=== PATIENT | female | born 1980 | race African-American/Black ===

== ENCOUNTER 2024-12-23 12:35 | Emergency (ER) | payer BC ==
--- OUTSIDE RECORDS SUMMARY | 2024-12-23 12:41 | XMS REPORT | Continuity of Care Document ---
Author Name Unknown Address [address] [facility] [address] [place] [address] [facility] Address [address] [facility] 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 Role Phone No , Pcp Primary Care Physician Unavailab GOYO Lamas Attending Clinician Unavailable Soledad Keyes APRN Attending Clinician [phone] CHARU VIDAL Attending Clinician UnavailMARICRUZ Morin Attending Clinician Unavailable ZAINAB BAHENA Attending Clinician Unavailable CHRETIEN_F Attending Clinician Unavailable GHAZALA IGNACIO Attending Clinician Unavailab Lina Raymond Attending Clinician [phone] Devang Wahl MD Attending Clinician [phone] Letha Mendoza MA Attending Clinician Unavailab le SCHAUBROECK_L Attending Clinician Unavailable Trinity Escudero Attending Clinician [phone] DEVANG WAHL M.D. 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 (multi 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) Disease Active 8-15 00:00: 00 Lucy Seybold - Externa l Moderate major depression , single episode Moderate Major Depression , Single Episode Problem Active 4-29 00:00: 00 [facility] Iron deficiency anemia due to blood loss Iron Deficiency Anemia Due to Blood Loss Problem Active 4- 00:00: 00 [facility] Menorrhagi a Menorrhagi a Problem Active 02-05 00:00: 00 [facility] Pain in pelvis Pain in Pelvis Problem Active - 00:00: 00 [facility] Menopausal flushing Menopausal Flushing Problem Active - 00:00: 00 [facility] Pain of right breast Pain of Right Breast Problem Active 9- 00:00: 00 [facility] Superficia l pain on intercours e Superficia l Pain on Intercours e Problem Active 9- 00:00: 00 [facility] Depressive disorder Depressive Disorder Problem Active 9- 00:00: 00 [facility] Frontal lobe epilepsy Frontal Lobe Epilepsy Problem Active - 00:00: 00 [facility] Constipati on Constipati on Problem Active - 00:00: 00 [facility] Dyspareuni a Dyspareuni a Problem Active 9- 00:00: 00 [facility] Chronic constipati on Chronic Constipati on Problem Active 11-30 00:00: 00 [facility] Seizure Seizure Problem Active 11-30 00:00: 00 [facility] Abdominal pain Abdominal Pain Problem Active 11-30 00:00: 00 [facility] ALT (SGPT) level raised ALT (SGPT) Level Raised Problem Active 06-04 00:00: 00 [facility] Raised low density lipoprotei n cholestero l Raised Low Density Lipoprotei n Cholestero l Problem Active 06-04 00:00: 00 [facility] Tenderness of right lower quadrant of abdomen Tenderness of Right Lower Quadrant of Abdomen Problem Active 05-29 00:00: 00 [facility] Seizure disorder Seizure Disorder Problem Active 2017-05 00:00: 00 [facility] Gynecologi you examinatio n abnormal Gynecologi you Examinatio n Abnormal Problem Active 06-20 00:00: 00 [facility] Mild recurrent major depression Mild Recurrent Major Depression Problem Active 06-20 00:00: 00 [facility] Convulsion s Convulsion s Problem [facility] Partial symptomati c epilepsy with simple partial seizures, intractabl e, without status epilepticu s Partial symptomati c epilepsy with simple partial seizures, intractabl e, without status epilepticu s Problem Active [facility] 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 Problem Active [facility] Epilepsy (multi HCC) Epilepsy (multi HCC) Disease Resolve d 2024-12-21 00:00:00 2024-12-21 09:07:23 Lucy Acuña - Externa l Allergies, Adverse Reactions, Alerts Allergy Name Allergy Type Status Severity Reaction(s) Onset Date Inactive Date Treating Clinician Comments Source Carbamaz epine Propensi ty to adverse reaction s Active 2021-05 00:00: 00 [facility] [place] de Propensi ty to adverse reaction s Active 2021-05 00:00: 00 [facility] TEGretol TABS Allergy to drug (finding ) Active [facility] Vimpat TABS Allergy to drug (finding ) Active [facility] Social History Social Habit Start Date Stop Date Quantity Comments Source ASSERTION Possible [facility] History of tobacco use Snuff User [facility] Gender identity Ivana Acuña - External Sexual orientation Michael Acuña - External History of Social function 2024-12-21 00:00:00 2024-12-21 00:00:00 Lucy Acuña - External Sex 2024-07-30 08:52:16 2024-07-30 08:52:16 Female (finding) Lucy Acuña - External Tobacco use and exposure 2024-07-30 00:00:00 2024-07-30 00:00:00 Smokeless tobacco non-user Lucy Acuña - External Alcoholic beverage intake 2023-11-03 00:00:00 2023-11-03 00:00:00 Current drinker of alcohol (finding) [facility] Alcohol intake 2023-03-22 00:00:00 2023-03-22 00:00:00 Current drinker of alcohol (finding) [facility] Exposure to SARS-CoV-2 (event) 2022-07-11 00:00:00 2022-07-21 09:24:00 Not sure [facility] Tobacco Comment 2022-02-24 00:00:00 2022-02-24 00:00:00 Current [facility] Alcohol Comment 2022-02-24 00:00:00 2022-02-24 00:00:00 Not everyday getting better [facility] Sex assigned at 1980 00:00:00 1980 00:00:00 Lucy Acuña - External Smoking Status Start Date Stop Date Source Tobacco smoking consumption unknown [facility] Never smoked tobacco Lucy Acuña - External Medications Ordered Medication Name Filled Medication Name Start Date Stop Date Current Medication? Ordering Clinician Indication Dosage Frequency Signature (SIG) Comments Components Source cloBAZam 10 MG oral Tablet cloBAZam 10 MG oral Tablet 12-21 08:54: 17 Yes [id number] 9100 10mg Q.5D Take 10 mg by mouth 2 times daily. Lucy Acuña - Externa l Naproxen 500 MG oral Tablet Naproxen 500 MG oral Tablet 12-21 00:00: 00 Yes [id number] 500mg Take 1 tablet (500 mg total) by mouth in the morning and 1 tablet (500 mg total) in the evening. Take with meals. Lucy Acuña - Externa l Midazolam (Nayzilam) 5 MG/0.1ML nasal Solution Midazolam (Nayzilam) 5 MG/0.1ML nasal Solution 4-09 00:00: 00 Yes [id number] 9100 [place] once in one nostril for seizure > 5 minutes or seizure cluster (2 or more seizures same day). Can repeat once in opposite nostril after 10 minutes if needed. Lucy de souza topiramate (Topamax) 200 MG tablet 4-09 00:00: 00 Yes [id number] 9100 200mg Q.5D Take 1 tablet (200 mg total) by mouth 2 (two) times a day, in the morning and at bedtime. [facility] Ondansetron (ZOFRAN) 8 MG oral tablet Ondansetron (ZOFRAN) 8 MG oral tablet 3-24 00:00: 00 12-21 00:00 :00 No [id number] 8mg [id number] 3D Take 1 tablet (8 mg total) by mouth every 8 hours as needed for nausea. Lucy de souza cloBAZam 10 MG oral Tablet cloBAZam 10 MG oral Tablet 3-03 00:00: 00 12-21 00:00 :00 No TAKE 1 TABLET (10 MG TOTAL) BY MOUTH EVERY MORNING AND 1.5 TABLETS (15 MG TOTAL) EVERY NIGHT. [facility] Topiramate 200 MG oral Tablet Topiramate 200 MG oral Tablet 3-01 00:00: 00 Yes Lucy de souza topiramate (Topamax) 200 MG tablet 2-06 00:00: 00 08-15 00:00 :00 No [id number] 9100 200mg Q.5D TAKE 1 TABLET (200 MG TOTAL) BY MOUTH IN THE MORNING AND BEFORE BEDTIME [facility] cloBAZam (Onfi) 10 MG tablet 2-04 00:00: 00 Yes [id number] 9100 Take 1 tablet (10 mg total) by mouth every morning AND 1.5 tablets (15 mg total) every night. Therapy increase. [facility] Escitalopra m Oxalate 10 MG oral Tablet Escitalopra m Oxalate 10 MG oral Tablet 1-13 00:00: 00 Yes 10mg QD Take 1 tablet (10 mg total) by mouth daily. Lucy de souza cloBAZam (Onfi) 10 MG tablet 11-02 00:00: 00 Yes [id number] Take 1 tablet (10 mg total) by mouth every morning AND 1.5 tablets (15 mg total) every night. [facility] escitalopra m (Lexapro) 10 MG tablet 11-02 00:00: 00 Yes [id number] 4104 10mg QD Take 1 tablet (10 mg total) by mouth 1 (one) time each day. [facility] topiramate (Topamax) 200 MG tablet 11-02 00:00: 00 10-19 04:59 :00 No [id number] 200mg Q.5D Take 1 tablet (200 mg total) by mouth in the morning and 1 tablet (200 mg total) before bedtime. [facility] cloBAZam (Onfi) 10 MG tablet 08-21 00:00: 00 11-02 00:00 :00 No [id number] 10mg Q.5D Take 1 tablet (10 mg total) by mouth in the morning and 1 tablet (10 mg total) in the evening. [facility] cloBAZam (Onfi) 10 MG tablet 2022-05 00:00: 00 Yes [id number] 10mg Q.5D Take 1 tablet (10 mg total) by mouth in the morning and 1 tablet (10 mg total) in the evening. [facility] cloBAZam (Onfi) 10 MG tablet 2022-05 00:00: 00 Yes [id number] 10mg Q.5D Take 1 tablet (10 mg total) by mouth in the morning and 1 tablet (10 mg total) in the evening. [facility] topiramate (Topamax) 200 MG tablet 2022-05 00:00: 00 11-02 00:00 :00 No [id number] 200mg Q.5D Take 1 tablet (200 mg total) by mouth in the morning and 1 tablet (200 mg total) before bedtime. [facility] escitalopra m (Lexapro) 10 MG tablet 2022-05 00:00: 00 11-02 00:00 :00 No [id number] 4104 10mg QD Take 1 tablet (10 mg total) by mouth 1 (one) time each day. [facility] cloBAZam (Onfi) 10 MG tablet 2022-05 0-16 00:00: 00 03-22 00:00 :00 No [id number] 10mg Q.5D Take 1 tablet (10 mg total) by mouth in the morning and 1 tablet (10 mg total) in the evening. [facility] escitalopra m (Lexapro) 10 MG tablet 9-20 00:00: 00 03-22 00:00 :00 No [id number] 4104 10mg QD TAKE 1 TABLET BY MOUTH 1 TIME EACH DAY. [facility] cloBAZam (Onfi) 10 MG tablet 8 00:00: 00 Yes [id number] 10mg Q.5D Take 1 tablet (10 mg total) by mouth in the morning and 1 tablet (10 mg total) in the evening. [facility] escitalopra m (Lexapro) 10 MG tablet 12-31 00:00: 00 04-01 05:59 :00 No [id number] 4104 10mg QD Take 1 tablet (10 mg total) by mouth 1 (one) time each day. [facility] topiramate (Topamax) 200 MG tablet 8 00:00: 00 03-22 00:00 :00 No [id number] 200mg Q.5D Take 1 tablet (200 mg total) by mouth in the morning and 1 tablet (200 mg total) before bedtime. [facility] cloBAZam (Onfi) 10 MG tablet 4-17 00:00: 00 12-31 00:00 :00 No [id number] TAKE 1 TABLET (10 MG TOTAL) BY MOUTH IN THE MORNING AND IN THE EVENING [facility] cloBAZam (Onfi) 10 MG tablet 3-15 00:00: 00 Yes [id number] 10mg Q.5D Take 1 tablet (10 mg total) by mouth in the morning and 1 tablet (10 mg total) in the evening. [facility] topiramate (Topamax) 200 MG tablet 3-15 00:00: 00 12-31 00:00 :00 No [id number] 200mg Q.5D Take 1 tablet (200 mg total) by mouth in the morning and 1 tablet (200 mg total) before bedtime. [facility] cloBAZam (Onfi) 10 MG tablet 2021-05 0- 00:00: 00 Yes [id number] 10mg Q.5D Take 1 tablet (10 mg total) by mouth in the morning and 1 tablet (10 mg total) in the evening. [facility] topiramate (Topamax) 200 MG tablet 2021-05 0 00:00: 00 03-27 05:59 :00 No [id number] 200mg Q.5D Take 1 tablet (200 mg total) by mouth in the morning and 1 tablet (200 mg total) before bedtime. [facility] cloBAZam (Onfi) 10 MG tablet 8-10 00:00: 00 02-24 00:00 :00 No [id number] Take 1/2 tab in the morning and 1 tab at night [facility] topiramate (Topamax) 200 MG tablet 8-08 00:00: 00 Yes [id number] TAKE 1 TABLET BY MOUTH TWICE A DAY [facility] cloBAZam (Onfi) 10 MG tablet 7-26 00:00: 00 Yes [id number] TAKE 1/2 TABLET BY MOUTH TWICE A DAY [facility] cloBAZam (Onfi) 10 MG tablet 6-24 00:00: 00 Yes [id number] TAKE 1/2 TABLET BY MOUTH TWICE DAILY [facility] Pycnogenol Plus 300-25-30 MG CAPS Pycnogenol Plus 300-25-30 MG CAPS 2019-05 0 00:00: 00 Yes 1 QD TAKE 1 CAPSULE DAILY [facility] CBD [place] 4-3-9-1.2 % External Patch CBD [place] 4-3-9-1.2 % External Patch 2019-05 0 00:00: 00 Yes cbd turmeric am, Take 1 capsule daily [facility] MCT Oil Oral Oil MCT Oil Oral Oil 2019-05 0 00:00: 00 Yes USE DIRECTED. [facility] MethylFolat e 400 MCG Oral Capsule MethylFolat e 400 MCG Oral Capsule 2020 00:00: 00 Yes 1 Q0.5D TAKE 1 CAPSULE TWICE DAILY [facility] Coconut Oil 1000 MG Oral Capsule Coconut Oil 1000 MG Oral Capsule 2019-05 00:00: 00 Yes 1 QD TAKE 1 CAPSULE DAILY [facility] Topiramate 200 MG Oral Tablet Topiramate 200 MG Oral Tablet 2018-05 00:00: 00 Yes DEVANG WAHL M.D. Q0.5D TAKE 1 TABLET TWICE DAILY. [facility] cloBAZam 10 MG Oral Tablet cloBAZam 10 MG Oral Tablet 2018-05 00:00: 00 Yes DEVANG WAHL M.D. .5 Q0.5D TAKE 0.5 TABLET TWICE DAILY [facility] escitalopra m 10 mg tablet Take 1 tablet every day by oral route. escitalopra m 10 mg tablet Take 1 tablet every day by oral route. No 1 Q1D escitalopr am 10 mg tablet Take 1 tablet every day by oral route. [facility] Integra F 125 mg-1 mg-40 mg-3 mg capsule Take 1 capsule every day by oral route for 90 days. Integra F 125 mg-1 mg-40 mg-3 mg capsule Take 1 capsule every day by oral route for 90 days. No 1capsul e(s) Q1D Integra F 125 mg-1 mg-40 mg-3 mg capsule Take 1 capsule every day by oral route for 90 days. [facility] Lexapro 20 mg tablet Take 1 tablet every day by oral route for 30 days. Lexapro 20 mg tablet Take 1 tablet every day by oral route for 30 days. No 1 Q1D Lexapro 20 mg tablet Take 1 tablet every day by oral route for 30 days. [facility] Provera 10 mg tablet Take 1 tablet twice a day by oral route for 30 days. Provera 10 mg tablet Take 1 tablet twice a day by oral route for 30 days. No 1 BID Provera 10 mg tablet Take 1 tablet twice a day by oral route for 30 days. [facility] Medrol (Alphonse) 4 mg tablets in a dose pack Take 1 dose pk every day by oral route before meals for 6 days. Medrol (Alphonse) 4 mg tablets in a dose pack Take 1 dose pk every day by oral route before meals for 6 days. No 1dose pk(s) Q1D Medrol (Alphonse) 4 mg tablets in a dose pack Take 1 dose pk every day by oral route before meals for 6 days. [facility] triamcinolo ne acetonide 0.5 % topical cream APPLY A THIN LAYER TO THE AFFECTED AREA(S) BY TOPICAL ROUTE 2 TIMES PER DAY triamcinolo ne acetonide 0.5 % topical cream APPLY A THIN LAYER TO THE AFFECTED AREA(S) BY TOPICAL ROUTE 2 TIMES PER DAY No triamcinol one acetonide 0.5 % topical cream APPLY A THIN LAYER TO THE AFFECTED AREA(S) BY TOPICAL ROUTE 2 TIMES PER DAY [facility] [place] Fe 1.5/30 (28) 1.5 mg-30 mcg (21)/75 mg (7) tablet TAKE 1 TABLET BY MOUTH EVERY DAY [place] Fe 1.5/30 (28) 1.5 mg-30 mcg (21)/75 mg (7) tablet TAKE 1 TABLET BY MOUTH EVERY DAY No [place] Fe 1.5/30 (28) 1.5 mg-30 mcg (21)/75 mg (7) tablet TAKE 1 TABLET BY MOUTH EVERY DAY [facility] Kenalog 40 mg/mL suspension for injection Take 60 mg by injection route as directed for 1 day. Kenalog 40 mg/mL suspension for injection Take 60 mg by injection route as directed for 1 day. No 60mg Kenalog 40 mg/mL suspension for injection Take 60 mg by injection route as directed for 1 day. [facility] methylpredn isolone 4 mg tablets in a dose pack TAKE 6 TABLETS ON DAY 1 DIRECTED ON PACKAGE AND DECREASE BY 1 TAB EACH DAY FOR A TOTAL OF 6 DAYS methylpredn isolone 4 mg tablets in a dose pack TAKE 6 TABLETS ON DAY 1 DIRECTED ON PACKAGE AND DECREASE BY 1 TAB EACH DAY FOR A TOTAL OF 6 DAYS No methylpred nisolone 4 mg tablets in a dose pack TAKE 6 TABLETS ON DAY 1 DIRECTED ON PACKAGE AND DECREASE BY 1 TAB EACH DAY FOR A TOTAL OF 6 DAYS [facility] amoxicillin 500 mg capsule TAKE 1 CAPSULE (500 MG) BY ORAL ROUTE 4 TIMES PER DAY UNTIL ALL TAKEN. amoxicillin 500 mg capsule TAKE 1 CAPSULE (500 MG) BY ORAL ROUTE 4 TIMES PER DAY UNTIL ALL TAKEN. No amoxicilli n 500 mg capsule TAKE 1 CAPSULE (500 MG) BY ORAL ROUTE 4 TIMES PER DAY UNTIL ALL TAKEN. [facility] Bactrim DS 800 mg-160 mg tablet Take 1 tablet every 12 hours by oral route as directed. Bactrim DS 800 mg-160 mg tablet Take 1 tablet every 12 hours by oral route as directed. No 1 Q12H Bactrim DS 800 mg-160 mg tablet Take 1 tablet every 12 hours by oral route as directed. [facility] Miconazole- 7 100 mg vaginal suppository Insert 1 suppository every day by vaginal route for 7 days. Miconazole- 7 100 mg vaginal suppository Insert 1 suppository every day by vaginal route for 7 days. No 1suppos itor(y/ ies) Q1D Miconazole -7 100 mg vaginal suppositor y Insert 1 suppositor y every day by vaginal route for 7 days. [facility] nystatin 100,000 unit/gram topical cream APPLY TO THE AFFECTED AREA(S) BY TOPICAL ROUTE 2 TIMES PER DAY nystatin 100,000 unit/gram topical cream APPLY TO THE AFFECTED AREA(S) BY TOPICAL ROUTE 2 TIMES PER DAY No nystatin 100,000 unit/gram topical cream APPLY TO THE AFFECTED AREA(S) BY TOPICAL ROUTE 2 TIMES PER DAY [facility] Vitamin B12 Vitamin B12 No Vi tamin B12 [facility] Vitamin B12 Vitamin B12 No Vi tamin B12 [facility] Immunizations Ordered Immunization Name Filled Immunization Name Date Status Comments Source Rubella Rubella 2012-08-23 00:00:00 Completed Lucy Acuña - External Td(adult) unspecified formulation Td(adult) unspecified formulation 2008-05-09 00:00:00 Completed Lucy Acuña - External Vital Signs Vital Name Observation Time Observation Value Comments S ource Systolic blood pressure 2024-12-21 08:48:00 98 mm[Hg] Lucy Acuña - External Diastolic blood pressure 2024-12-21 08:48:00 64 mm[Hg] Lucy Acuña - External Heart rate 2024-12-21 08:48:00 88 /min Lucy Acuña - External Body temperature 2024-12-21 08:48:00 37 Danika Lucy Acuña - External Respiratory rate 2024-12-21 08:48:00 18 /min Lucy Acuña - External Body height 2024-12-21 08:48:00 160 cm Lucy Acuña - External Body weight 2024-12-21 08:48:00 70.761 kg Lucy Acuña - External BMI 2024-12-21 08:48:00 27.63 kg/m2 Lucy Sebridgetlesli - External Oxygen saturation in Arterial blood by Pulse oximetry 2024-12-21 08:48:00 99 /min Lucy Acuña - External Body Weight 2024-09-28 00:00:00 155 [lb_av] [facility] BP Systolic 2024-09-28 00:00:00 116 mm[Hg] [facility] BMI (Body Mass Index) 2024-09-28 00:00:00 26.6 kg/m2 [facility] BP Diastolic 2024-09-28 00:00:00 81 mm[Hg] [facility] Height 2024-09-28 00:00:00 64 [in_i] [facility] BP Diastolic 2024-09-04 00:00:00 74 mm[Hg] [facility] Height 2024-09-04 00:00:00 64 [in_i] [facility] BP Systolic 2024-09-04 00:00:00 111 mm[Hg] [facility] Body Weight 2024-09-04 00:00:00 155.6 [lb_av] [facility] BMI (Body Mass Index) 2024-09-04 00:00:00 26.7 kg/m2 [facility] Systolic blood pressure 2024-07-30 15:46:00 110 mm[Hg] Lucy Grullonybold - External Diastolic blood pressure 2024-07-30 15:46:00 68 mm[Hg] Lucy Seybold - External Heart rate 2024-07-30 15:46:00 69 /min Lucy Domenico - External Body temperature 2024-07-30 15:46:00 36.72 Danika Lucy Seybold - External Respiratory rate 2024-07-30 15:46:00 20 /min Lucygui Acuña - External Body height 2024-07-30 15:46:00 160 cm Lucy Acuña - External Body weight 2024-07-30 15:46:00 68.04 kg Lucy Acuña - External BMI 2024-07-30 15:46:00 26.57 kg/m2 Lucy Acuña - External Oxygen saturation in Arterial blood by Pulse oximetry 2024-07-30 15:46:00 100 /min Lucy Acuña - External BMI (Body Mass Index) 2024-02-06 00:00:00 27.7 kg/m2 [facility] Height 2024-02-06 00:00:00 64 [in_i] [facility] Body Weight 2024-02-06 00:00:00 161.4 [lb_av] [facility] BP Systolic 2024-01-20 00:00:00 97 mm[Hg] [facility] Body Weight 2024-01-20 00:00:00 161.4 [lb_av] [facility] BMI (Body Mass Index) 2024-01-20 00:00:00 27.7 kg/m2 [facility] Height 2024-01-20 00:00:00 64 [in_i] [facility] BP Diastolic 2024-01-20 00:00:00 74 mm[Hg] [facility] Systolic blood pressure 2023-11-03 19:59:00 126 mm[Hg] [facility] Diastolic blood pressure 2023-11-03 19:59:00 87 mm[Hg] [facility] Heart rate 2023-11-03 19:59:00 77 /min [facility] Body temperature 2023-11-03 19:59:00 36.61 Danika [facility] Respiratory rate 2023-11-03 19:59:00 18 /min [facility] Body weight 2023-11-03 19:59:00 73.029 kg [facility] BMI 2023-11-03 19:59:00 28.52 kg/m2 [facility] Oxygen saturation in Arterial blood by Pulse oximetry 2023-11-03 19:59:00 99 /min [facility] Systolic blood pressure 2023-03-22 18:56:00 126 mm[Hg] [facility] Diastolic blood pressure 2023-03-22 18:56:00 85 mm[Hg] [facility] Heart rate 2023-03-22 18:56:00 62 /min [facility] Body temperature 2023-03-22 18:56:00 36.5 Danika [facility] Respiratory rate 2023-03-22 18:56:00 18 /min [facility] Body weight 2023-03-22 18:56:00 71.079 kg [facility] BMI 2023-03-22 18:56:00 27.76 kg/m2 [facility] Oxygen saturation in Arterial blood by Pulse oximetry 2023-03-22 18:56:00 100 /min [facility] Systolic blood pressure 2022-12-31 19:28:00 119 mm[Hg] [facility] Diastolic blood pressure 2022-12-31 19:28:00 82 mm[Hg] [facility] Heart rate 2022-12-31 19:28:00 83 /min [facility] Body temperature 2022-12-31 19:28:00 36.17 Danika [facility] Respiratory rate 2022-12-31 19:28:00 18 /min [facility] Body weight 2022-12-31 19:28:00 73.936 kg [facility] BMI 2022-12-31 19:28:00 28.87 kg/m2 [facility] Oxygen saturation in Arterial blood by Pulse oximetry 2022-12-31 19:28:00 98 /min [facility] Systolic blood pressure 2022-07-21 14:41:00 116 mm[Hg] [facility] Diastolic blood pressure 2022-07-21 14:41:00 74 mm[Hg] [facility] Heart rate 2022-07-21 14:41:00 66 /min [facility] Body temperature 2022-07-21 14:41:00 36.67 Danika [facility] Body height 2022-07-21 14:41:00 160 cm [facility] Body weight 2022-07-21 14:41:00 73.619 kg [facility] BMI 2022-07-21 14:41:00 28.75 kg/m2 [facility] Systolic blood pressure 2022-02-24 19:27:00 120 mm[Hg] [facility] Diastolic blood pressure 2022-02-24 19:27:00 80 mm[Hg] [facility] Heart rate 2022-02-24 19:27:00 85 /min [facility] Body temperature 2022-02-24 19:27:00 36.39 Danika [facility] Respiratory rate 2022-02-24 19:27:00 18 /min [facility] Body height 2022-02-24 19:27:00 160 cm [facility] Body weight 2022-02-24 19:27:00 70.444 kg [facility] BMI 2022-02-24 19:27:00 27.51 kg/m2 [facility] Oxygen saturation in Arterial blood by Pulse oximetry 2022-02-24 19:27:00 100 /min [facility] BP Diastolic 2021-11-30 00:00:00 87 mm[Hg] [facility] Height 2021-11-30 00:00:00 64 [in_i] [facility] BMI (Body Mass Index) 2021-11-30 00:00:00 25.2 kg/m2 [facility] BP Systolic 2021-11-30 00:00:00 123 mm[Hg] [facility] Body Weight 2021-11-30 00:00:00 2352 [oz_av] [facility] BP Diastolic 2021-09-08 00:00:00 70 mm[Hg] [facility] Height 2021-09-08 00:00:00 64 [in_i] [facility] BMI (Body Mass Index) 2021-09-08 00:00:00 25.5 kg/m2 [facility] BP Systolic 2021-09-08 00:00:00 112 mm[Hg] [facility] Body Weight 2021-09-08 00:00:00 2377.6 [oz_av] [facility] BP Diastolic 2020-12-09 00:00:00 88 mm[Hg] [facility] Height 2020-12-09 00:00:00 64 [in_i] [facility] BP Systolic 2020-12-09 00:00:00 134 mm[Hg] [facility] BP Diastolic 2020-11-28 00:00:00 43 mm[Hg] [facility] Height 2020-11-28 00:00:00 64 [in_i] [facility] BMI (Body Mass Index) 2020-11-28 00:00:00 26.7 kg/m2 [facility] BP Systolic 2020-11-28 00:00:00 124 mm[Hg] [facility] Body Weight 2020-11-28 00:00:00 2489.6 [oz_av] [facility] BP Diastolic 2020-06-03 00:00:00 76 mm[Hg] [facility] Height 2020-06-03 00:00:00 64 [in_i] [facility] BMI (Body Mass Index) 2020-06-03 00:00:00 26.9 kg/m2 [facility] BP Systolic 2020-06-03 00:00:00 111 mm[Hg] [facility] Body Weight 2020-06-03 00:00:00 2508.8 [oz_av] [facility] BP Diastolic 2020-05-29 00:00:00 68 mm[Hg] [facility] Height 2020-05-29 00:00:00 64 [in_i] [facility] BMI (Body Mass Index) 2020-05-29 00:00:00 26.4 kg/m2 [facility] BP Systolic 2020-05-29 00:00:00 112 mm[Hg] [facility] Body Weight 2020-05-29 00:00:00 2464 [oz_av] [facility] Systolic blood pressure 2020-05-19 09:16:00 114 mm[Hg] Location: LUE; Position: Sitting [facility] Diastolic blood pressure 2020-05-19 09:16:00 77 mm[Hg] Location: LUE; Position: Sitting [facility] Body height 2020-05-19 09:16:00 64 [in_us] [facility] Weight 2020-05-19 09:16:00 155 [lb_av] [facility] Body mass index (BMI) [Ratio] 2020-05-19 09:16:00 26.61 kg/m2 [facility] Body temperature 2020-05-19 09:16:00 97.6 [degF] Method: Temporal [facility] Heart Rate 2020-05-19 09:16:00 88 /min [facility] Respiratory rate 2020-05-19 09:16:00 14 /min [facility] O2 SAT 2020-05-19 09:16:00 99 % Source: [facility] Systolic blood pressure 2020-02-11 08:05:00 108 mm[Hg] Location: LUE; Position: Sitting [facility] Diastolic blood pressure 2020-02-11 08:05:00 73 mm[Hg] Location: LUE; Position: Sitting [facility] Body height 2020-02-11 08:05:00 64 [in_us] [facility] Weight 2020-02-11 08:05:00 139.5 [lb_av] [facility] Body mass index (BMI) [Ratio] 2020-02-11 08:05:00 23.95 kg/m2 [facility] Body temperature 2020-02-11 08:05:00 96.6 [degF] Method: Temporal [facility] Heart Rate 2020-02-11 08:05:00 89 /min [facility] Respiratory rate 2020-02-11 08:05:00 16 /min Quality: Normal [facility] O2 SAT 2020-02-11 08:05:00 100 % Source: [facility] BP Systolic 2019-05-29 11:36:00 117 mm[Hg] Location: LUE; Position: Sitting [facility] BP Diastolic 2019-05-29 11:36:00 81 mm[Hg] Location: LUE; Position: Sitting [facility] Height 2019-05-29 11:36:00 64 [in_us] [facility] Weight 2019-05-29 11:36:00 144.6 [lb_av] [facility] Body Mass Index Calculated 2019-05-29 11:36:00 24.82 kg/m2 [facility] Heart Rate 2019-05-29 11:36:00 90 /min [facility] BP Systolic 2019-02-22 13:10:00 109 mm[Hg] [facility] BP Diastolic 2019-02-22 13:10:00 73 mm[Hg] [facility] Height 2019-02-22 13:10:00 64 [in_us] [facility] Weight 2019-02-22 13:10:00 143 [lb_av] [facility] Body Mass Index Calculated 2019-02-22 13:10:00 24.55 kg/m2 [facility] Heart Rate 2019-02-22 13:10:00 76 /min [facility] Procedures Procedure Date / Time Performed Performing Clinician Source CBC WITH DIFFERENTIAL 2024-12-22 00:00:00 Lucy Acuña - External COMP. METABOLIC PANEL (14) 2024-12-21 00:00:00 Lucy Acuña - External TSH+FREE T4 2024-12-21 00:00:00 Lucy suh - External HEMOGLOBIN (HB) A1C 2024-12-21 00:00:00 Michael camp Sebridgetlesli - External RIBS UNILATERAL LEFT 2024-12-21 00:00:00 Lucy Acuña - External US TRANSVAGINAL 2024-01-27 00:00:00 [facility] MAMMO, diagnostic, digital, bilateral 2024-01-20 00:00:00 [facility] US, breast, unilateral 2024-01-20 00:00:00 [facility] COMPREHENSIVE METABOLIC PANEL 2022-07-21 18:38:00 Charu Vidal [facility] CBC AND DIFFERENTIAL 2022-07-21 18:38:00 Melissa Vidal [facility] MAMMO, screening, digital, bilateral 2021-11-30 00:00:[address] [facility] [address], abdomen + pelvis, w/ contrast 2021-11-30 00:00:00 [facility] US, abdomen + pelvis 2020-05-29 00:00:00 [facility] PET Brain refractory seizures [id number] 2019-05-11 00:00:00 [facility] [[facility]] Neuro EMU 2019-02-26 00:00:00 [facility] MRI Brain wo contrast [id number] 2019-02-26 00:00:00 [facility] Ligation of Bilateral Fallopian Tubes 2008-05-09 00:00:00 [facility] Delivery [facility] ical ECG- ADULT Lucy Grullonyumiko - External Plan of Care Planned Activity Planned Date Details Comments Source Diagnostic Test Pending 2021-11-30 00:00:00 CBC w/ auto diff [code = CBC w/ auto diff] [facility] Diagnostic Test Pending 2021-11-30 00:00:00 vitamin D, 25-hydroxy, total, serum [code = vitamin D, 25-hydroxy, total, serum] [facility] Diagnostic Test Pending 2021-11-30 00:00:00 TSH + free T4, serum [code = TSH + free T4, serum] [facility] Diagnostic Test Pending 2021-11-30 00:00:00 lipid panel w/ direct LDL, serum [code = lipid panel w/ direct LDL, serum] [facility] Diagnostic Test Pending 2021-11-30 00:00:00 HbA1c (hemoglobin A1c), blood [code = HbA1c (hemoglobin A1c), blood] [facility] Diagnostic Test Pending 2021-11-30 00:00:00 CMP, serum or plasma [code = CMP, serum or plasma] [facility] Diagnostic Test Pending 2019-05-11 00:00:00 PET Brain refractory seizures [id number] [code = 97425] [facility] Diagnostic Test Pending 2019-05-11 00:00:00 PET Brain refractory seizures 64603 [code = 21512] [facility] Diagnostic Test Pending 2019-02-26 00:00:00 MRI Brain wo contrast [id number] [code = 05441] [facility] Diagnostic Test Pending 2019-02-26 00:00:00 [UTP] Neuro EMU [code = [UTP] Neuro EMU] [facility] Diagnostic Test Pending 2019-02-26 00:00:00 [UTP] Neuro EMU [code = [UTP] Neuro EMU] [facility] Instructions [facility] Encounters Start Date/Time End Date/Time Encounter Type Admission Type Attending Clinicians Care Facility Care Department Encounter ID Source 2022-08-09 15:14:54 Outpatient [facility] [id number] [facility] 2022-07-21 09:27:15 Outpatient [facility] [id number] [facility] 2022-07-15 09:22:53 Outpatient [facility] [id number] [facility] 2022-05-12 10:50:09 Outpatient [facility] [id number] [facility] 2022-02-25 08:37:19 Outpatient [facility] [id number] [facility] 2022-02-24 14:20:39 Outpatient [facility] [id number] [facility] 2022-02-19 11:05:25 Outpatient [facility] [id number] [facility] 2022-02-17 13:07:34 Outpatient [facility] [id number] [facility] 2025-01-02 08:00:00 2025-01-02 08:00:00 Outpatient GOY[facility] RICCI [id number] Lucy Acuña 2024-12-21 09:00:00 2024-12-21 09:00:00 Outpatient GOY[facility] RICCI [id number] Lucy Acuña 2024-10-12 00:00:00 2024-10-12 00:00:00 PAIGE Garcia: [address], [place] [address] , Ph. [facility] - GC_GCBZW_[facility]* [id number] [facility] 2024-09-28 00:00:00 2024-09-28 00:00:00 Comfort Lopez MD: [address], [place] [phone] , Ph. [facility] - GC[facility]GCBZW_[place]* [id number] [facility] 2024-09-04 00:00:00 2024-09-04 00:00:00 KURTIS Whitehead: [address], [place] [phone] , Ph. [facility] - GC_GCBZW_[facility]* [id number] [facility] 2024-08-15 16:30:00 2024-08-15 16:34:05 Telemedici nm Wali, [facility] [address] [facility] 1.2.840.114 350.1.13.58 9.2.7.2.686 [id number] [facility] 2024-07-30 10:30:00 2024-07-30 10:30:00 Outpatient GOYO RICCI [id number] Lucy Acuña 2024-07-24 08:00:00 2024-07-24 08:00:00 Outpatient CHARU VIDAL [facility] [id number] [facility] 2024-03-06 08:00:00 2024-03-06 08:00:00 Outpatient CHARU VIDAL [facility] [id number] [facility] 2024-02-06 00:00:00 2024-02-06 00:00:00 KURTIS Whitehead: [address], [place] [phone] , Ph. [facility] - GC[facility]GCBZW_[facility]* [id number] [facility] 2024-01-27 00:00:00 2024-01-27 00:00:00 Comfort Lopez MD: [address], [place] [phone] , Ph. [facility] - GC_GCBZW_[facility]* [id number] [facility] 2024-01-20 00:00:00 2024-01-20 00:00:00 KURTIS Whitehead: [address], [place] [phone] , Ph. [facility] - GC[facility]GCBZW_[facility]* [id number] [facility] 2023-11-03 14:30:00 2023-11-03 15:41:42 Office Visit Charu Vidal [facility] [address] 1..840.114 350.1.13.58 9.2.7.2.686 [id number] [facility] 2023-09-28 09:00:00 2023-09-28 09:00:00 Outpatient MARICRUZ NOVOA [facility] [id number] [facility] 2023-03-22 13:30:00 2023-03-22 13:48:41 Office Visit Maricruz Novoa [facility] [address] 1..840.114 350.1.13.58 9.2.7.2.686 [id number] [facility] 2022-12-31 14:30:00 2022-12-31 15:14:51 Office Visit Maricruz Novoa [facility] [address] 1..840.114 350.1.13.58 9.2.7.2.686 [id number] [facility] 2022-09-13 13:00:00 2022-09-13 13:00:00 Outpatient ZAINAB BAHENA [facility] [id number] [facility] 2022-07-21 09:30:00 2022-07-21 12:04:56 Office Visit Charu Vidal [facility] [address] 1.2.840.114 350.1.13.58 9.2.7.2.686 [id number] [facility] 2022-05-25 11:00:00 2022-05-25 11:00:00 Outpatient GHAZALA IGNACIO [facility] [id number] [facility] 2022-05-12 11:00:00 2022-05-12 12:53:49 Outpatient GHAZALA IGNACIO [facility] [id number] [facility] 2022-02-24 14:30:00 2022-02-24 15:38:58 Office Visit Charu Vidal [facility] [address] 1.2.840.114 350.1.13.58 9.2.7.2.686 [id number] [facility] 2021-12-16 00:00:00 2021-12-16 00:00:00 Telephone Charu Vidal [address] 1.2.840.114 350.1.13.58 9.2.7.2.686 [id number] [facility] 2021-12-03 00:00:00 2021-12-03 00:00:00 Telephone Charu Vidal [address] 1.2.840.114 350.1.13.58 9.2.7.2.686 [id number] [facility] 2021-11-30 00:00:00 2021-11-30 00:00:00 Lina Jalloh APRN-RAISE DRILL OPERATOR-B C: [address], [address], [place] [address] , Ph. [facility] [id number] [facility] 2021-11-30 00:00:00 2021-11-30 00:00:00 Outpatient Lina Jalloh [facility] [id number] 2021-11-30 00:00:00 2021-11-30 00:00:00 Outpatient Lina Jalloh [facility] [id number] 2021-11-26 00:00:00 2021-11-26 00:00:00 Telephone Devang Wahl [facility] [address] 1.2.840.114 350.1.13.58 9.2.7.2.686 [id number] [facility] 2021-11-12 00:00:00 2021-11-12 00:00:00 Telephone Devang Wahl [facility] [address] 1.2.840.114 350.1.13.58 9.2.7.2.686 [id number] [facility] 2021-09-08 00:00:00 2021-09-08 00:00:00 Lina Jalloh BURRER HAND-RAISE DRILL OPERATOR-B C: [address] [place] [address], [address], [place] [address] , Ph. [facility] [id number] [facility] 2021-09-08 00:00:00 2021-09-08 00:00:00 Outpatient Lina Jalloh [facility] [id number] 2021-07-24 00:00:00 2021-07-24 00:00:00 Telephone Devang Wahl [facility] [address] 1.2.840.114 350.1.13.58 9.2.7.2.686 [id number] [facility] 2021-07-24 00:00:00 2021-07-24 00:00:00 Telephone Letha Mendoza Andreina [facility] [address] [facility] 1.2.840.114 350.1.13.58 9.2.7.2.686 [id number] [facility] 2020-12-09 00:00:00 2020-12-09 00:00:00 CARMEL Mcfarland-C: [address] [place] [address], [address] [address] , Ph. [facility] [id number] [facility] 2020-12-09 00:00:00 2020-12-09 00:00:00 Outpatient Trinity Escuderoe [facility] [id number] 2020-11-28 00:00:00 2020-11-28 00:00:00 Outpatient Trinity Escudero [facility] [id number] 2020-11-28 00:00:00 2020-11-28 00:00:00 CARMEL Mcfarland-C: [address] [place] [address], [address] [phone] , Ph. [facility] [id number] [facility] 2020-06-03 00:00:00 2020-06-03 00:00:00 Outpatient Prerna Escuderoa Marie [facility] [id number] 2020-06-03 00:00:00 2020-06-03 00:00:00 CARMEL Mcfarland-C: [address] [place] [address], [address] [place] [address] , Ph. [facility] [id number] [facility] 2020-05-29 00:00:00 2020-05-29 00:00:00 Outpatient KaelTrinity demarco [facility] [id number] 2020-05-29 00:00:00 2020-05-29 00:00:00 Trinity Gordon Kaelsolomonanita yeager, [facility]-: [address] [place] [address], [address], [place] [address] , Ph. [facility] [id number] [facility] 2020-05-19 09:00:00 2020-05-19 09:00:00 Appointmen t; DEVANG WAHL M.D. THOMPSON, STEPHEN, M.D. [facility] Neurology [facility] [id number] [facility] 2020-02-11 08:00:00 2020-02-11 08:00:00 Appointmen t; DEVANG WAHL M.D. THOMPSON, STEPHEN, M.D. [facility] [id number] [facility] 2020-01-17 13:00:00 2020-01-17 13:00:00 Appointmen t; DEVANG WAHL M.D. THOMPSON, STEPHEN, M.D. [facility] [id number] [facility] 2019-08-28 09:00:00 2019-08-28 09:00:00 Appointmen t; DEVANG WAHL M.D. THOMPSON, STEPHEN, M.D. [facility] Neurology [facility] [id number] [facility] 2019-06-19 09:30:00 2019-06-19 09:30:00 Appointmen t; DEBRA ZAIDI, PHD DEBRA ZAIDI, PHD [facility] [id number] [facility] 2019-05-29 11:30:00 2019-05-29 11:30:00 Appointmen t; DEVANG WAHL M.D. THOMPSON, STEPHEN, M.D. [facility] Neurology [facility] [id number] [facility] 2019-02-22 13:00:00 2019-02-22 13:00:00 Appointclaudine regalado; DEVANG WAHL M.D. THOMPSON, STEPHEN, M.D. [facility] [id number] [facility] 2019-02-08 09:30:00 2019-02-08 09:30:00 Appointmen t; EEG, ADULTCLINI C EEG, ADULTCLINIC [facility] [id number] [facility] Results Test Description Test Time Test Comments Results Result Co mments Source [facility]pap, LB + [id number] 00:00:00* Test Item Value Reference Range Interpretation Comme nts note: (test code = note:) Comment diagnosis: (test code = diagnosis:) Comment specimen adequacy: (test cod e = specimen adequacy:) Comment performed by: (test code = p erformed by:) Comment HPV aptima (test code = HPV aptima) Negative negative test methodology: (test code = test methodology:) Comment [facility] MedicalChlamydia trachomatis and Neisseria gonorrhoeae rRNA panel - Specimen by JHONATAN with probe [id number] 00:00:00* Test Item Value Reference Range Interpretation Comme nts aptima combo 2 swab (CT) (te st code = aptima combo 2 swab (CT)) CT NEG negative aptima combo 2 swab (GC) (te st code = aptima combo 2 swab (GC)) GC NEG negative [facility] MedicalThyrotropin [Units/volume] in Serum or [id number] 00:00:00* Test Item Value Reference Range Interpretation Comme nts TSH (test code = TSH) 1.110 uIU/mL 0.500-4.530 [facility] MedicalHepatic function 2000 panel - Serum or [id number] 00:00:00* Test Item Value Reference Range Interpretation Comme nts total protein (test code = t otal protein) 8.3 g/dL 6.0-8.3 albumin (test code = albumin) 4.7 g/dL 3.5-5.2 total bilirubin (test code = total bilirubin) 0.2 mg/dL 0.0-1.2 direct bilirubin (test code = direct bilirubin) 0.1 mg/dL 0.0-0.3 alkaline phosphatase (test c ode = alkaline phosphatase) 81 U/L 44-147 AST (SGOT) (test code = AST (SGOT)) 45 U/L 0-32 H ALT (SGPT) (test code = ALT (SGPT)) 42 U/L 0-33 H globulin (test code = globulin) 3.6 g/dL 1.7-3.7 A/G ratio (test code = A/G ratio) 1.3 calc. 1.1-2.9 [facility] - Serum or [id number] 00:00:00* Test Item Value Reference Range Interpretation Comme nts sodium (test code = sodium) 138 mmol/L 136-145 potassium (test code = potassium) 5.2 mmol/L 3.5-5.5 chloride (test code = chloride) 104 mmol/L 98-107 CO2 (test code = CO2) 20 mmol/ L 23-31 L glucose (test code = glucose) 87 mg/dL 70-99 BUN (test code = BUN) 10 mg/dL 6-20 creatinine (test code = creatinine) 1.0 mg/dL 0.5-0.9 H BUN/creatinine ratio (test code = BUN/creatinine ratio) 10.0 calc 10.0-28.0 eGFR non- (test code = eGFR non-) 73.145 mL/min/1.73A? >60.000 eGFR (test code = eGFR ) 87.774 mL/min/1.73A? >60.000 [facility] MedicalLipid 1996 panel - Serum or [id number] 00:00:00* Test Item Value Reference Range Interpretation Comme nts cholesterol (test code = cholesterol) 236 mg/dL 0-200 H triglycerides (test code = triglycerides) 152 mg/dL 10-150 H HDL cholesterol (test code = HDL cholesterol) 42 mg/dL >50 L HDL risk factor (test code = HDL risk factor) 5.6 calc. VLDL cholesterol (test code = VLDL cholesterol) 30 calc dldl (test code = dldl) 156 mg/dL <100 H [facility] [Mass/volume] in Serum or [id number] 00:00:00 * Test Item Value Reference Range Interpretation Comme nts estradiol (test code = estradiol) 73.8 pg/mL 6.1-91.9 [facility] MedicalFollitropin [Units/volume] in Serum or [id number] 00:00:00* Test Item Value Reference Range Interpretation Comme nts FSH (test code = FSH) 5.0 mIU/mL [facility] by Automated [id number] 00:00:00* Test Item Value Reference Range Interpretation Comme nts WBC (test code = WBC) 7.6 10 3.7-12.0 RBC (test code = RBC) 4.63 10 3.60-5.50 HGB (test code = HGB) 10.7 g/dL 11.5-15.6 L HCT (test code = HCT) 35.9 % 34.5-46.5 MCV (test code = MCV) 77.4 um 80.0-102.0 L MCH (test code = MCH) 23.1 pg 25.0-34.1 L MCHC (test code = MCHC) 29.8 g/dL 29.0-35.0 RDW (test code = RDW) 17.3 % 10.9-16.9 H plt (test code = plt) 285 10 136-392 MPV (test code = MPV) 9.2 um 7.4-11.1 gran % (test code = gran %) 65.5 % 36.0-78.0 lymph % (test code = lymph %) 27.6 % 12.0-48.0 mono % (test code = mono %) 3.9 % 0.0-13.0 eos % (test code = eos %) 2 % 0-8 baso % (test code = baso %) 1 % 0-2 gran # (test code = gran #) 5.0 10 1.2-6.8 lymph # (test code = lymph #) 2.1 10 1.2-3.2 mono # (test code = mono #) 0.3 10 0.3-0.8 eos # (test code = eos #) 0.2 10 0.0-0.4 baso # (test code = baso #) 0.1 10 0.0-0.2 [facility] and [id number] 11:00:00* Test Item Value Reference Range Interpretation Comme nts WHITE BLOOD CELL COUNT (test code = 6690-2) 7 See_Comment [Automated message] The system which generated this result transmitted reference range: 3.8 - 10.8 Thousand/uL. The reference range was not used to interpret this result as normal/abnormal. RED BLOOD CELL COUNT (test code = 789-8) 4.76 See_Comment [Automated message] The system which generated this result transmitted reference range: 3.80 - 5.10 Million/uL. The reference range was not used to interpret this result as normal/abnormal. HEMOGLOBIN (test code = 718-7) 12.3 g/dL 11.7-15.5 HEMATOCRIT (test code = 4544-3) 37.5 % 35.0-45.0 MCV (test code = 787-2) 78.8 fL 80.0-100.0 L MCH (test code = 785-6) 25.8 pg 27.0-33.0 L MCHC (test code = 786-4) 32.8 g/dL 32.0-36.0 RDW (test code = 788-0) 14.1 % 11.0-15.0 PLATELET COUNT (test code = 777-3) 283 See_Comment [Automated message] The system which generated this result transmitted reference range: 140 - 400 Thousand/uL. The reference range was not used to interpret this result as normal/abnormal. MPV (test code = 776-5) 11.1 fL 7.5-12.5 ABSOLUTE NEUTROPHILS (test code = 751-8) 3997 See_Comment [Automated message] The system which generated this result transmitted reference range: 1500 - 7800 cells/uL. The reference range was not used to interpret this result as normal/abnormal. ABSOLUTE LYMPHOCYTES (test code = 731-0) 2485 See_Comment [Automated message] The system which generated this result transmitted reference range: 850 - 3900 cells/uL. The reference range was not used to interpret this result as normal/abnormal. ABSOLUTE MONOCYTES (test code = 742-7) 294 See_Comment [Automated message] The system which generated this result transmitted reference range: 200 - 950 cells/uL. The reference range was not used to interpret this result as normal/abnormal. ABSOLUTE EOSINOPHILS (test code = 711-2) 182 See_Comment [Automated message] The system which generated this result transmitted reference range: 15 - 500 cells/uL. The reference range was not used to interpret this result as normal/abnormal. ABSOLUTE BASOPHILS (test code = 704-7) 42 See_Comment [Automated message] The system which generated this result transmitted reference range: 0 - 200 cells/uL. The reference range was not used to interpret this result as normal/abnormal. NEUTROPHILS (test code = 770-8) 57.1 % LYMPHOCYTES (test code = 736-9) 35.5 % MONOCYTES (test code = 5905-5) 4.2 % EOSINOPHILS (test code = 713-8) 2.6 % BASOPHILS (test code = 706-2) 0.6 % REPORT COMMENT:FASTING:N O RAC (test code = RAC) Performing Organization Information: ? ?Site ID: [facility] ? ?Name: [employer] [facility] [place] ? ?Address: [address] [place], [place] [id number] ? ?Director: BARBARA FRANCO MD Lab Interpretation (test code = 89068-8) [facility]normal [facility] [id number] 11:00:00* Test Item Value Reference Range Interpretation Comme nts GLUCOSE (test code = 2345-7) 87 mg/dL 65-139 ? ? ? Non-fastin g reference interval UREA NITROGEN (BUN) (test code = 3094-0) 10 mg/dL 7-25 CREATININE (test code = 2160-0) 0.9 mg/dL 0.50-0.99 EGFR (test code = 002857750) 82 See_Comment The eGFR is base d on the CKD-EPI 2021 equation. To calculate the new eGFR from a previous Creatinine or Cystatin Cresult, go to [email or web address] [email or web address] [Automated message] The system which generated this result transmitted reference range: > OR = 60 mL/min/1.73m2. The reference range was not used to interpret this result as normal/abnormal. BUN/CREATININE RATIO (test code = 3097-3) NOT APPLICABLE See_Comment [Automated message] The system which generated this result transmitted reference range: 6 - 22 (calc). The reference range was not used to interpret this result as normal/abnormal. SODIUM (test code = 2951-2) 140 mmol/L 135-146 POTASSIUM (test code = 2823-3) 4.2 mmol/L 3.5-5.3 CHLORIDE (test code = 5-0) 110 mmol/L 98-110 CARBON DIOXIDE (test code = 2027-9) 23 mmol/L 20-32 CALCIUM (test code = 74222-1) 9.3 mg/dL 8.6-10.2 PROTEIN, TOTAL (test code = 2885-2) 7.1 g/dL 6.1-8.1 ALBUMIN (test code = 1751-7) 4.1 g/dL 3.6-5.1 GLOBULIN (test code = 12446-4) 3 See_Comment [Automated message] The system which generated this result transmitted reference range: 1.9 - 3.7 g/dL (calc). The reference range was not used to interpret this result as normal/abnormal. ALBUMIN/GLOBULIN RATIO (test code = 1759-0) 1.4 See_Comment [Automated message] The system which generated this result transmitted reference range: 1.0 - 2.5 (calc). The reference range was not used to interpret this result as normal/abnormal. BILIRUBIN, TOTAL (test code = 1974-2) 0.3 mg/dL 0.2-1.2 ALKALINE PHOSPHATASE (test code = 6768-6) 58 U/L 31-125 AST (test code = 1920-8) 14 U/L 10-30 ALT (test code = 1742-6) 16 U/L 6-29 RAC (test code = RAC) Performing Organization Information: ? ?Site ID: [id number] ? ?Name: [employer] [facility] [place] ? ?Address: [address] [place] [id number] ? ?Director: BARBARA FRANCO MD [facility] W Auto Differential panel - [id number] 00:00:00* Test Item Value Reference Range Interpretation Comme nts Leukocytes [#/volume] in Blo od by Automated count (test code = 6690-2) 5.9 x10e3/uL 3.4-10.8 Erythrocytes [#/volume] in Blood by Automated count (test code = 789-8) 4.82 x10e6/uL 3.77-5.28 Hemoglobin [Mass/volume] in Blood (test code = 718-7) 12.7 g/dL 11.1-15.9 Hematocrit [Volume Fraction] of Blood by Automated count (test code = 4544-3) 39.9 % 34.0-46.6 Erythrocyte mean corpuscular volume [Entitic volume] by Automated count (test code = 787-2) 83 fL 79-97 Erythrocyte mean corpuscular hemoglobin [Entitic mass] by Automated count (test code = 785-6) 26.3 pg 26.6-33.0 L Erythrocyte mean corpuscular hemoglobin concentration [Mass/volume] by Automated count (test code = 786-4) 31.8 g/dL 31.5-35.7 Erythrocyte distribution wid th [Ratio] by Automated count (test code = 788-0) 13.0 % 11.7-15.4 Platelets [#/volume] in Bloo d by Automated count (test code = 777-3) 299 x10e3/uL 150-450 Neutrophils/100 leukocytes i n Blood by Automated count (test code = 770-8) 49 % not estab. Lymphocytes/100 leukocytes i n Blood by Automated count (test code = 736-9) 42 % not estab. Monocytes/100 leukocytes in Blood by Automated count (test code = 5905-5) 5 % not estab. Eosinophils/100 leukocytes i n Blood by Automated count (test code = 713-8) 2 % not estab. Basophils/100 leukocytes in Blood by Automated count (test code = 706-2) 1 % not estab. immature cells (test code = immature cells) cloth dyeing range tender Neutrophils [#/volume] in Bl ood by Automated count (test code = 751-8) 2.9 x10e3/uL 1.4-7.0 Lymphocytes [#/volume] in Bl ood by Automated count (test code = 731-0) 2.5 x10e3/uL 0.7-3.1 Monocytes [#/volume] in Bloo d by Automated count (test code = 742-7) 0.3 x10e3/uL 0.1-0.9 Eosinophils [#/volume] in Bl ood by Automated count (test code = 711-2) 0.1 x10e3/uL 0.0-0.4 Basophils [#/volume] in Bloo d by Automated count (test code = 704-7) 0.1 x10e3/uL 0.0-0.2 Immature granulocytes/100 leukocytes in Blood by Automated count (test code = 24811-8) 1 % not estab. Immature granulocytes [#/volume] in Blood by Automated count (test code = 10513-0) 0.0 x10e3/uL 0.0-0.1 Nucleated erythrocytes/100 leukocytes [Ratio] in Blood by Automated count (test code = 99145-1) cloth dyeing range tender Morphology [Interpretation] in Blood Narrative (test code = 93203-0) cloth dyeing range tender [facility] - Serum or [id number] 00:00:00* Test Item Value Reference Range Interpretation Comme nts Glucose [Mass/volume] in Ser um or Plasma (test code = 2345-7) 87 mg/dL 65-99 Urea nitrogen [Mass/volume] in Serum or Plasma (test code = 3094-0) 10 mg/dL 6-20 Creatinine [Mass/volume] in Serum or Plasma (test code = 2160-0) 0.98 mg/dL 0.57-1.00 Glomerular filtration rate/1.73 sq M.predicted among non-blacks [Volume Rate/Area] in Serum, Plasma or Blood by Creatinine-based formula (CKD-EPI) (test code = 68366-8) 73 mL/min/1.73 >59 Glomerular filtration rate/1.73 sq M.predicted among blacks [Volume Rate/Area] in Serum, Plasma or Blood by Creatinine-based formula (CKD-EPI) (test code = 05913-2) 84 mL/min/1.73 >59 Urea nitrogen/Creatinine [Ma ss Ratio] in Serum or Plasma (test code = 3097-3) 10 9-23 Sodium [Moles/volume] in Ser um or Plasma (test code = 2951-2) 137 mmol/L 134-144 Potassium [Moles/volume] in Serum or Plasma (test code = 2823-3) 4.6 mmol/L 3.5-5.2 Chloride [Moles/volume] in Serum or Plasma (test code = 2075-0) 108 mmol/L 96-106 H Carbon dioxide, total [Moles/volume] in Serum or Plasma (test code = 2027-9) 17 mmol/L 20-29 L Calcium [Mass/volume] in Ser um or Plasma (test code = 64420-2) 10.3 mg/dL 8.7-10.2 H Protein [Mass/volume] in Ser um or Plasma (test code = 2885-2) 7.2 g/dL 6.0-8.5 Albumin [Mass/volume] in Ser um or Plasma (test code = 1751-7) 4.2 g/dL 3.8-4.8 Globulin [Mass/volume] in Serum by calculation (test code = 81470-5) 3.0 g/dL 1.5-4.5 Albumin/Globulin [Mass Ratio ] in Serum or Plasma (test code = 1759-0) 1.4 1.2-2.2 Bilirubin.total [Mass/volume ] in Serum or Plasma (test code = 1974-) <0.2 0.0-1.2 Alkaline phosphatase [Enzymatic activity/volume] in Serum or Plasma (test code = 6768-6) 62 IU/L 39-117 Aspartate aminotransferase [Enzymatic activity/volume] in Serum or Plasma (test code = 1920-8) 22 IU/L 0-40 Alanine aminotransferase [Enzymatic activity/volume] in Serum or Plasma (test code = 1742-6) 38 IU/L 0-32 H [facility] ClinicsLipid 1996 panel - Serum or [id number] 00:00:00* Test Item Value Reference Range Interpretation Comme nts Cholesterol [Mass/volume] in Serum or Plasma (test code = 2093-3) 166 mg/dL 100-199 Triglyceride [Mass/volume] i n Serum or Plasma (test code = 2571-8) 124 mg/dL 0-149 Cholesterol in HDL [Mass/vol ume] in Serum or Plasma (test code = 2085-9) 31 mg/dL >39 L Cholesterol in VLDL [Mass/vo lume] in Serum or Plasma by calculation (test code = 70384-3) 23 mg/dL 5-40 Cholesterol in LDL [Mass/vol ume] in Serum or Plasma by calculation (test code = 24358-7) 112 mg/dL 0-99 H Laboratory comment [Text] in Report Narrative (test code = 07448-2) cloth dyeing range tender Cholesterol in LDL/Cholester ol in HDL [Mass Ratio] in Serum or Plasma (test code = 75925-7) 3.6 ratio 0.0-3.2 H [facility] free [Mass/volume] in Serum or [id number] 00:00:00* Test Item Value Reference Range Interpretation Comme nts Thyroxine (T4) free [Mass/vo lume] in Serum or Plasma (test code = 3024-7) 1.06 NG/dL 0.82-1.77 [facility] ClinicsThyrotropin [Units/volume] in Serum or Plasma by Detection limit <= 0.005 mIU/[id number] 00:00:00* Test Item Value Reference Range Interpretation Comme nts Thyrotropin [Units/volume] i n Serum or Plasma by Detection limit <= 0.005 mIU/L (test code = 18150-6) 1.400 uIU/mL 0.450-4.500 [facility] Qbnmban54-Oxmnjhnqdvpkjh D3+25-Hydroxyvitamin D2 [Mass/volume] in Serum or [id number] 00:00:00* Test Item Value Reference Range Interpretation Comme nts 25-Hydroxyvitamin D3+25-Hydroxyvitamin D2 [Mass/volume] in Serum or Plasma (test code = 07674-0) 30.6 NG/mL 30.0-100.0 [facility] Brain refractory seizures [id number] 2019-06-25 13:16:00EXAM: Brain FDG PET/CT for Seizure DisorderDATE: PET/CT from 06/25/2019 at 1703 hours.INDICATION: Partial symptomatic epilepsy.COMPARISON: Brain magnetic resonance imaging from 03/13/2019.TECHNIQUE: Approximately 30 minutes after IV injection of 12.97 mCi FDG whilepatient was on interictal status, brain PET/CT imaging was obtained. The PETimages were compared to the [facility]. The brain PET images are fused with recent MRI image of the brainon the [facility] workstation.FINDINGS:There is moderately decreased FDG uptake in large area of nearly the entireleft temporal lobe. Hypometabolism within the mesial temporal is greater thanthe lateral temporal lobe. 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 Thereis otherwise relatively normal symmetric FDG uptake in the bilateral frontal,parietal and the occipital lobes.The CT images of the brain are otherwise unremarkable.IMPRESSION:Finding is suspicious for seizure site in large area of the left temporal lobe,greatest in the mesial temporal lobe.No FDG uptake within the left temporal occipital meningoencephalocele possiblyrelated to sclerosis.--This report was dictated by a Hair Spinning Machine Operator/Fellow/Physician Campus Police Officer. Ihave personallyreviewed the images as well as the interpretation and agree with the findings.Read by: zO Matthew MD Resident/Fellow/PhysicianAssistant: Oz Matthew MDDictated Date/time: 06/25/19 15:56Electronically Signed by: Santo Zendejas MD 06/25/2015:26FINAL REPORTUT [facility] Brain wo contrast [id number] 16:21:00EXAM: MRI BRAIN WITHOUT CONTRASTDATE: 03/13/2019 5:03 PM CSTINDICATION: G40.119 partial symptomatic epilepsy with simple partial seizures,intractable, G40.219 complex partial epilepsy with generalization and withintractable epilepsyCOMPARISON: NoneTECHNIQUE: Multiplanar, multisequence MRI of the brain without contrast.IV contrast: None.FINDINGS:There is a contour asymmetry of the brain detected along the inferior surfaceat the junction of the temporal and occipital lobe on the left. The parenchymaextends beyond the expected dural margin having a pointed configurationdownward into the petrous temporal bone. The finding is visible on thefollowing images (series 401 image 36, series 1101 image 36&37, series 302image 42, series 203 image 156 and the corresponding sagittal image series 201image 43). The small asymmetry measures approximately 7 mm AP and inferiorextension beyond the expected dural location is approximately 6 mm.No restricted diffusion or associated abnormal parenchymal signal. No mass ormass effect, hydrocephalus, or extraaxial collection.No hippocampal sclerosis, corti you dysplasia, or heterotopia. No hemosiderindeposition or calcifications.The right cerebellar tonsil (only) projects 4 mm through the foramen magnummaintaining a normal rounded configuration.Larger intracranial vascular flow voids are preserved. Paranasal sinuses andmastoid air cells are clear. Nor mal marrow signal intensity.IMPRESSION:1. 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 No findings of primary or secondary mesial temporal sclerosis.3. Normal MRI of the remainder of the brain without contrast.4. Right cerebellar tonsillar ectopia is a normal developmental variant.--Read by: Brad Fontaine MDDictated Date/time: 03/14/19 11:01Electronically Signed by: Brad Fontaine MD 03/14/1912:10FINAL REPORTUT [facility]EP[facility] - Neuro Routine [id number] 11:18:01* Test Item Value Reference Range Interpretation Comme nts EEGREPORT (test code = EEGREPORT) SEE NOTES AND IMAGELINK A This routine EEG is abnormal and suggestive of left fronto-temporaL dysfunctionNo epileptiform discharges or electrographic seizures were noted on this record [facility] Notes Date/Time Note Provider Source Referral ID Status Reason Start Date Expiration Date Visits Requested Visits Authorized [id number] Authorized Service Not Available at Clinic 12/21/2024 03/21/2025 [id number] [id number] [facility] [id number] 09:36:31* Goyo Ricci PA-C - 12/21/2024 8:55 AM CDT HPI: Patricia Pina is a 44 year old female is here for Chest Pain (Chest pain since last night. Hurts to breath ) . Chest pain: Symptoms that started 1 days ago- constant since it started. Location is center to left chest feels a pressure that wraps around her front and to her left shoulder along the left lower rib. No recent none injury but does have history of seizure and sometimes does not know when she has a seizure. Rib injury is possible. Left lower rib is tender to palpation. She is going through a lot at home and work which may be making her feel anxious- she takes Lexapro 10 mg daily but unsure if it is helping. This is managed by her neurologist. Chest pain does not correlate with spicy or acidic foods, does not occur after eating. Family history: mom and dad both had multiple heart attacks. Personal cardiac hx: none She has never had an EKG. History of seizures: Seizures are typically partial seizures but has had grand mal seizures in the past. Managed by neurology. Follow up scheduled for next month. No recent changes in medication. Last witnessed partial seizure three weeks ago- daughter noticed her staring off into space unresponsive. Current medications: Current Medications[1] Allergies: Patient has no known allergies. I have reviewed the past Medical, Family, and Social history. Review of Systems: All systems are negative, except those pertinent items mentioned in the HPI. Review of Systems Constitutional: Negative for activity change. Eyes: Negative for visual disturbance. Respiratory: Negative for chest tightness, shortness of breath and wheezing. Rib pain with inspiration Cardiovascular: Positive for chest pain. Negative for palpitations and leg swelling. Neurological: Positive for seizures (last known partial seizure witnessed by daughter three weeks ago). Negative for syncope, light-headedness and headaches. Physical Exam: BP 98/64 (Side: Left Arm, Position: SITTING, Cuff Size: Medium Adult) | Pulse 88 | Temp 98.6 ?F (37 ?C) (Oral) | Resp 18 | Ht 5' 3" (1.6 m) | Wt 156 lb (70.8 kg) | LMP 12/12/2024 (Exact Date) | SpO2 99% | BMI 27.63 kg/m? Physical Exam Constitutional: General: She is not in acute distress. Appearance: Normal appearance. HENT: Head: Normocephalic and atraumatic. Right Ear: External ear normal. Left Ear: External ear normal. Nose: Nose normal. Eyes: Conjunctiva/sclera: Conjunctivae normal. Cardiovascular: Rate and Rhythm: Normal rate. Pulses: Normal pulses. Heart sounds: No murmur heard. Pulmonary: Effort: Pulmonary effort is normal. No respiratory distress. Breath sounds: No stridor. No wheezing, rhonchi or rales. Musculoskeletal: General: Tenderness (left lower rib tenderness) present. Neurological: General: No focal deficit present. Mental Status: She is alert. Psychiatric: Mood and Affect: Mood normal. Behavior: Behavior normal. Thought Content: Thought content normal. Judgment: Judgment normal. Assessment and Plan: Patricia was seen today for chest pain. Diagnoses and all orders for this visit: Chest pain, unspecified type- ECG- ADULT - REFERRAL TO CARDIOLOGY- EXTERNAL - TSH+FREE T4; Future EKG obtained today was normal. Referral placed to cardiology due to family history of coronary artery disease and new chest pain. Family history of early CADEKG obtained today was normal. Referral placed to cardiology due to family history of coronary artery disease and new chest pain. Costochondral chest pain- Naproxen 500 MG oral Tablet; Take 1 tablet (500 mg total) by mouth in the morning and 1 tablet (500 mg total) in the evening. Take with meals. - RIBS UNILATERAL LEFT; Future Will obtain left rib x-ray's to rule out fracture due to possible seizure. 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 METABOLIC PANEL (14); Future - CBC WITH DIFFERENTIAL; Future - HEMOGLOBIN (HB) A1C; Future - RIBS UNILATERAL LEFT; Future Managed by neurology. Continue current medications and recommended follow-up. Will obtain left rib x-ray's to rule out fracture due to possible seizure. Fatigue, unspecified type- COMP. METABOLIC PANEL (14); Future - TSH+FREE T4; Future - CBC WITH DIFFERENTIAL; Future Will obtain lab today and reassess fatigue at physical in 1 week. Return in 1 week (on 12/28/2024) for annual physical. This document was completed using voice recognition software. This can produce timber packer errors that can at times significantly distort words and phrases. Please interpret any aspect of the note that is nonsensical in light of this fact. PAIGE Nieves-CSP: Dr. Trevon Gonzalez, [facility] [1]Current Outpatient Medications Medication Sig Dispense Refill cloBAZam 10 MG oral Tablet Take 10 mg by mouth 2 times daily. Escitalopram Oxalate 10 MG oral Tablet Take 1 tablet (10 mg total) by mouth daily. Midazolam (Nayzilam) 5 MG/0.1ML nasal Solution [place] once in one nostril for seizure > 5 minutes or seizure cluster (2 or more seizures same day). Can repeat once in opposite nostril after 10 minutes if needed. Naproxen 500 MG oral Tablet Take 1 tablet (500 mg total) by mouth in the morning and 1 tablet (500 mg total) in the evening. Take with meals. 60 tablet 0 Topiramate 200 MG oral Tablet No current facility-administered medications for this visit. [facility]2025-08-15 09:36:31Upcoming Encounters Scheduled Orders Name Type Priority Associated Diagnoses Orde r Schedule ECG- ADULT Cardiology Routine Chest pain, unspecified type Ordered: 12/21/2024 COMP. 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) Fatigue, unspecified type Expected: 12/22/2024 (Approximate), Expires: 02/19/2025 HEMOGLOBIN (HB) A1C Lab Routine Simple p artial seizure disorder with intractable epilepsy (multi HCC) Expected: 12/21/2024, Expires: 03/21/2025 RIBS UNILATERAL LEFT Imaging Routine 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 (multi HCC) Costochondral chest pain Expected: 12/21/2024, Expires: 06/23/2025 Scheduled Referrals Name Type Priority Associated Diagnoses Orde r Schedule REFERRAL TO CARDIOLOGY- EXTERNAL Referral Routine Chest pain, unspeci fied type Ordered: 12/21/2024 Health Maintenance Due Date Last Done Comments Tdap Vaccines 01/17/2000 Lipid Panel 2001 PAP SMEAR WITH HPV 2011 Mammogram 2021 Physical Exam 2021 COVID-19 Vaccine (2023-2 5 season) 2024 Influenza Vaccines (#1) 2025 RSV Vaccines (1 - 1-dose 75+ series) 01/17/2056 Pneumococcal Vaccine: Pediat rics (0 to 5 Years) and At-Risk Patients (6 to 64 Years) Aged Out No longer eligible b ased on patient's age to complete this topic [facility]2025-08-15 09:36:31 Diagnosis Chest pain, unspecified type - Primary Family history of early CAD Family history of ischemic heart disease Costochondral chest pain Painful respiration 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 Hurts to breath Sepideh Cheatham [facility]2025-03-24 10:49:57 Chief Complaint Patient presents with Headache Nausea Vomiting Symptoms started last night. Now has the chills. Sepideh Cheatham [facility]
[2024-12-23] MEDS ORDERED: ASPIRIN 81 MG CHEWABLE TABLET ONE (13:12)
[2024-12-23 13:36] LABS: Absolute Lymphocytes (CBC) 1.9 K/uL (0.7-4.9); Hematocrit 31.7 % (36.0-45.0); Hemoglobin 10.3 g/dL (12.0-15.0); MCH 23.0 pg (27.0-35.0); MCHC 32.6 g/dL (32.0-36.0); MCV 70.7 fL (80-100); MPV 8.4 fL (7.6-11.3); Nucleated RBC Absolute Count 0.0 (0-0); Nucleated Red Blood Cells % 0.0 % (0-0); RBC Red Blood Cell Count 4.48 M/uL (3.86-4.86); White Blood Count 8.40 thou/uL (4.3-10.9)
[2024-12-23 14:17] LABS: ALT/SGPT 24 U/L (13-56); AST/SGOT 16 U/L (15-37); Albumin 3.7 g/dL (3.4-5.0); Albumin/Globulin Ratio 0.9 (1.1-1.8); Alkaline Phosphatase 78 U/L (45-117); Anion Gap 9.9 mEq/L (5.0-15.0); BUN Blood Urea Nitrogen 6 mg/dL (7-18); Bilirubin Indirect, Calculated 0.2 mg/dL (0.2-0.8); Globulin 4.1 g/dL (2.3-3.5); Glucose Level 96 mg/dL (74-106); Magnesium 2.1 mg/dL (1.6-2.4); NT PRO-BNP 59 pg/mL (<125); Potassium 3.9 mEq/L (3.5-5.1); Troponin High Sensitivity < 3.0 pg/mL (<58.9)
--- NOTE | 2024-12-23 14:33 | RAD REPORT ---
EXAM: Chest Single View HISTORY: 44 years Female CHEST PAIN COMPARISON: 03/26/2017 FINDINGS: LUNGS/PLEURA: The lungs are clear. No pleural effusions or pneumothorax. No pulmonary edema. CARDIAC/MEDIASTINUM: The cardiac silhouette is within normal limits. UPPER ABDOMEN: No significant abnormality. BONES: No acute abnormality. LINES/TUBES/OTHER: N/A IMPRESSION: No evidence of acute cardiopulmonary disease.
[2024-12-23] MEDS ORDERED: HYDROCODONE/APAP 5/325 MG TAB ONE (15:01)
[2024-12-23] MEDS ORDERED: FAMOTIDINE 20 MG/2 ML VIAL IV ONE (15:01)
[2024-12-23 15:08] LABS: D-Dimer 1.644 FEUug/mL (0-0.500); PT Prothrombin Time 14.0 SECONDS (10-13.0); Protime INR 1.25
--- NOTE | 2024-12-23 17:14 | RAD REPORT ---
EXAMINATION: CTA CHEST PE CLINICAL INDICATION: Female, 44 years old. CHEST PAIN TECHNIQUE: This examination was performed according to an angiographic protocol with 3D post-processi ng. This involves 3D reconstructions, MIPs, volume rendered images and/or shaded surface rendering. One or more of the following dose reduction techniques were used: Automated exposure control, adjustm ent of the mA and/or kV according to patient size, and/or iterative reconstruction. Unless otherwise specified, incidental findings do not require dedicated imaging follow-up. [id number]. COMPARISON: No priors. FINDINGS: LOWER NECK: Visualized thyroid gland and soft tissues are normal. MEDIASTINUM AND LYMPH NODES: No mediastinal mass or fluid collection. Normal size mediastinal, hilar, and axillary lymph nodes. THORACIC AORTA: No thoracic aortic aneurysm. PULMONARY ARTERIES: Caliber is within normal limits. No pulmonary emboli identified. HEART: Normal heart size. No coronary calcifications.No significant pericardial effusion. LUNGS AND AIRWAYS: Wedge-shaped groundglass opacities in the lingula. Mild dependent opacities may re flect atelectasis. No suspicious and/or stable pulmonary nodules. PLEURA: No pleural effusions. No pneumothorax. OSSEOUS STRUCTURES AND CHEST WALL: No fracture or suspicious osseous lesions. UPPER ABDOMEN: No acute abnormalities. IMPRESSION: Negative for acute pulmonary embolism. Wedge-shaped groundglass opacities in the lingula with differential to include infection, inflammatio n, or hemorrhage infarct. The appearance and location is very typical of a pulmonary infarct but no pulmonary embolus identified today. Reportedly, the patient's symptoms are subacute. It is possible t hat the patient had a peripheral embolus that subsequently resolved.
--- NOTE | 2024-12-23 17:38 | ER ---
Nurse's Notes [facility] Name: Khushboo Pina Age: 44 yrs Sex: Female : 1980 Arrival Date: 12/23/2024 Time: 12:35 Bed 4 Private MD: Diagnosis: Lobar pneumonia, unspecified organism;Chest pain on breathing Presentation: 12/23 12:49 Chief complaint: Patient states: has been having chest pains for a few weeks, started iw under her breast and up left side of back and shoulders, it's hard to breathe at times, hurts to take a deep breath, and my arm tingles some times, I went to my Doctor on Tuesday and they did an ekg and it was normal , they gave her naproxen prescription , she ordered blood work but did not have it done yet, 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 Coronavirus screen: At this time, the client does not indicate any symptoms associated with coronavirus-19. Ebola Screen: No symptoms or risks identified at this time. Initial Sepsis Screen: Does the patient meet any 2 criteria? No. Patient's initial sepsis screen is negative. Does the patient have a suspected source of infection? No. Patient's initial sepsis screen is negative. Risk Assessment: Do you want to hurt yourself or someone else? Patient reports no desire to harm self or others. Onset of symptoms was December 09, 2024. 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 - Infectious Disease History:: Denies. - Social history:: Smoking status: Patient denies any tobacco usage or history of. Patient uses alcohol, on a daily basis. 3 beers per day . Screenin:19 [facility] ED Fall Risk Assessment (Adult) History of falling in the last 3 months, iw including since admission No falls in past 3 months (0 pts) Confusion or Disorientation No (0 pts) Intoxicated or Sedated No (0 pts) Impaired Gait No (0 pts) Mobility Assist Device Used No (0 pt) Altered Elimination No (0 pt) Score/Fall Risk Level 0 - 2 = Low Risk Oriented to surroundings, Maintained a safe environment. Abuse screen: Denies threats or abuse. Denies injuries from another. Nutritional screening: No deficits noted. Tuberculosis screening: No symptoms or risk factors identified. Assessment: 13:17 General: Appears in no apparent distress. Behavior is calm, cooperative. Pain: iw Complains of pain in xiphoid area and left breast Pain radiates to left scapular area and left arm Pain currently is 8 out of 10 on a pain scale. Pain began more than two weeks ago. Neuro: Level of Consciousness is awake, alert, obeys commands, Oriented to person, place, time, situation, Moves all extremities. Full function. Cardiovascular: Reports chest pain, shortness of breath, Patient's skin is warm and dry. Rhythm is sinus rhythm. Respiratory: Respiratory effort is even, unlabored, Respiratory pattern is regular, symmetrical. GI: Abdomen is round non-distended. Derm: Skin is intact, is healthy with good turgor. Musculoskeletal: Range of motion: intact in all extremities. 14:49 Reassessment: Patient appears in no apparent distress at this time. Patient and/or iw family updated on plan of care and expected duration. Pain level reassessed. Patient is alert, oriented x 3, equal unlabored respirations, skin warm/dry/pink. Patient states symptoms have not improved. 16:12 Reassessment: Patient appears in no apparent distress at this time. Patient and/or iw family updated on plan of care and expected duration. Pain level reassessed. Patient is alert, oriented x 3, equal unlabored respirations, skin warm/dry/pink. Pain: Complains of pain in chest and left breast. Vital Signs: 12:49 BP 104 / 73; Pulse 85; Resp 16; Temp 97; Pulse Ox 98% on R/A; Weight 70.76 kg; Height 5 iw ft. 4 in. ; Pain 6/10; 14:49 BP 111 / 72; Pulse 81; Resp 16; Pulse Ox 98% on R/A; Pain 6/10; iw 15:51 BP 101 / 54; Pulse 76; Resp 15; Pulse Ox 100% ; jl7 18:14 BP 116 / 68; Pulse 75; Resp 15; Pulse Ox 100% ; jl7 12:49 Body Mass Index 26.78 (70.76 kg, 162.56 cm) iw 12:49 Pain Scale: Adult iw 14:49 Pain Scale: Adult iw ED Course: 12:37 Patient arrived in ED. ts1 12:38 Kamille Simon PA-C is PHCP. sb4 12:38 Mil Ni MD is Attending Physician. sb4 12:53 Triage completed. iw 12:55 Arm band placed on. iw 12:59 Roger Bright RN is Primary Nurse. jl7 13:20 Initial lab(s) drawn, by me, sent to lab. Inserted saline lock: 20 gauge in right rk3 antecubital area, using aseptic technique. Blood collected. Flushed with 10 mL NS. 13:45 Patient has correct armband on for positive identification. Bed in low position. Call iw light in reach. Side rails up X2. Provided Education on: labs . Client placed on continuous cardiac and pulse oximetry monitoring. NIBP monitoring applied. pvc monitor on. 14:27 XRAY Chest (1 view) In Process Unspecified. EDMS 16:12 Primary Nurse role handed off by Roger Bright RN iw 16:12 Gardenia John, LIZETH is Primary Nurse. iw 17:04 Chest For PE Angio CT In Process Unspecified. EDMS 17:37 Chang Mcfarland MD is Referral Physician. sb4 18:15 No provider procedures requiring assistance completed. IV discontinued, intact, jl7 bleeding controlled, No redness/swelling at site. Pressure dressing applied. Patient maintains SpO2 saturation greater than 95% on room air. Administered Medications: 13:17 Drug: Aspirin PO Chewable Tablet 324 mg PO once; 81 mg tablets x 4 Route: PO; iw 18:17 Follow up: Response: No adverse reaction jl7 15:06 Drug: Famotidine IVP 20 mg IVP once; dilute with 10 mL 0.9% NaCl; give over 2 minutes jl7 Route: IVP; Site: right antecubital; 18:13 Follow up: Response: No adverse reaction jl7 15:06 Drug: HYDROcodone-acetaminophen PO 5 mg-325 mg 1 tabs PO once Route: PO; jl7 18:13 Follow up: Response: No adverse reaction; Pain is decreased jl7 18:13 Drug: AZITHromycin PO 500 mg PO once Route: PO; jl7 18:14 Follow up: Response: Medication administered at discharge. jl7 18:13 Drug: Rocephin IV 1 grams IV at calculated rate once; Given slow IV push per pharmacy jl7 instructions Route: IV; Rate: calculated rate; Site: right antecubital; 18:13 Follow up: Response: No adverse reaction; IV Status: Completed infusion jl7 Medication: 13:19 VIS not applicable for this client. Outcome: 17:37 Discharge ordered by . black 18:15 Discharged to home ambulatory, with family, jl7 18:15 Condition: stable 18:15 Discharge instructions given to patient, family, Instructed on discharge instructions, follow up and referral plans. medication usage, Demonstrated understanding of instructions, follow-up care, medications, Prescriptions given X 2, 18:16 Patient left the ED. jl7 Signatures: Dispatcher [employer] EDMS Gardenia John, RN Roger Burton RN RN jl7 Kamille Simon, PA-C PA-Ted [email or web address] Gela Oshea PAS PAS ts1 Ade Linares rk3 Corrections: (The following items were deleted from the chart) 12:55 12:49 BP 104 / 73; Pulse 85bpm; Resp 16bpm; Pulse Ox 98% RA; Temp 97F; iw iw 14:50 14:49 Pulse 81bpm; Resp 16bpm; Pulse Ox 98% RA; Pain 6/10, Adult; iw iw
--- NOTE | 2024-12-23 17:38 | EDPHYS ---
Physician Documentation [facility] Name: Khushboo Pina Age: 44 yrs Sex: Female : 1980 Arrival Date: 12/23/2024 Time: 12:35 Bed 4 Private MD: ED Physician Mil Ni HPI: 12/23 13:54 This 44 yrs old Black Female presents to ER via Ambulatory with complaints of Chest sb4 Pain, Shoulder Pain, Back Pain. 14:16 Patient reports intermittent chest pain for about 2 weeks now. States it is a pressure sb4 sensation on the left side of her chest that radiates up into her shoulder. She went to her primary care 2 days ago, had an EKG done, labs ordered, and was prescribed naproxen. States that naproxen does improve her symptoms, but it returns. She has not had her labs done yet. She reports a cardiac history in both of her parents but denies any personal history. Denies any history of hypertension or high cholesterol. [employer]IDENT [employer]: 18:14 LMP N/A - control method, Not jl7 Historical: - Allergies: 12:53 levetiracetam; iw - PMHx: 12:53 Seizure; iw - Immunization history:: Adult Immunizations not up to date. - Infectious Disease History:: Denies. - Social history:: Smoking status: Patient denies any tobacco usage or history of. Patient uses alcohol, on a daily basis. 3 beers per day . ROS: 14:19 Constitutional: Negative for fever, chills, and weight loss, sb4 14:19 Cardiovascular: Positive for chest pain, 14:19 All other systems are negative, Exam: 14:19 Constitutional: This is a well developed, well nourished patient who is awake, alert, sb4 and in no acute distress. Head/Face: Normocephalic, atraumatic. Eyes: Extra-ocular motions intact. Periorbital areas with no swelling, redness, or edema. ENT: Mucous membranes moist. Cardiovascular: Regular rate and rhythm with a normal S1 and S2. Respiratory: No increased work of breathing, no retractions or nasal flaring. Abdomen/GI: Soft, non-tender, no distension. Skin: Warm, dry with normal turgor. Normal color with no rashes, no lesions, and no evidence of cellulitis. Vital Signs: 12:49 BP 104 / 73; Pulse 85; Resp 16; Temp 97; Pulse Ox 98% on R/A; Weight 70.76 kg; Height 5 iw ft. 4 in. ; Pain 6/10; 14:49 BP 111 / 72; Pulse 81; Resp 16; Pulse Ox 98% on R/A; Pain 6/10; iw 15:51 BP 101 / 54; Pulse 76; Resp 15; Pulse Ox 100% ; jl7 18:14 BP 116 / 68; Pulse 75; Resp 15; Pulse Ox 100% ; jl7 12:49 Body Mass Index 26.78 (70.76 kg, 162.56 cm) iw 12:49 Pain Scale: Adult iw 14:49 Pain Scale: Adult iw MDM: 12:39 Medical Screening Exam initiated sb4 13:07 External Records Reviewed: Outpatient record: EKG from December 21, [address] showed normal sinus rhythm with a rate of 82, WV interval of 164, QRS of 78, QT of 378. There is no Q waves or ST elevation noted. 14:20 Differential diagnosis: Costochondritis, pleurisy, GERD, pericarditis, ACS, pneumonia, sb4 muscle strain. 16:35 Data reviewed: vital signs, nurses notes, lab test result(s), cardiac enzymes, troponin sb4 i, CBC, electrolytes, hepatic panel, EKG, radiologic studies, CT scan, plain films. 17:42 Consideration of Admission/Observation Escalation of care including sb4 admission/observation considered. Management of patient was discussed with the following: Financial Reporting Specialist: Dr. Gates, believes the groundglass opacity in the lingula is likely a pneumonia. He recommends outpatient oral antibiotics and follow-up with him in office. Counseling: I had a detailed discussion with the patient and/or guardian regarding the historical points, exam findings, and any diagnostic results supporting the discharge/admit diagnosis, lab results, radiology results, the need for outpatient follow up, a rn immunology, to return to the emergency department if symptoms worsen or persist or if there are any questions or concerns that arise at home. ED course: Patient states that she is feeling better, she is not short of breath, her chest pain is reduced. I discussed her lab and CT findings with her. She is comfortable going home with oral antibiotics and follow-up with Dr. Gates this week. She is eager to be discharged at this time. I provided her and her daughter with a copy of her results. They will return for any new or worsening symptoms. 18:30 Data reviewed: I have discussed the patient's presentation/case with the attending [facility] Emergency Department Physician; and as a result, I will discharge patient. Independent interpretation of the following test(s) in the Emergency Department X-Ray: My interpretation is My interpretation of the checks x-ray images is no acute consolidation or cardiomegaly. CT Scan: My interpretation is My interpretation of the chest CTA is consolidation noted in the left lingula. 12/23 13:02 Order name: Basic Metabolic Panel; Complete Time: 14:18 [facility] 12/23 13:02 Order name: CBC with Diff; Complete Time: 13:44 [facility] 12/23 13:02 Order name: D-Dimer; Complete Time: 15:13 [facility] 12/23 13:02 Order name: LFT's; Complete Time: 14:18 [facility] 12/23 13:02 Order name: Magnesium; Complete Time: 14:18 [facility] 12/23 13:02 Order name: NT PRO-BNP; Complete Time: 14:18 [facility] 12/23 13:02 Order name: PT-INR; Complete Time: 15:13 [facility] 12/23 13:02 Order name: Troponin HS; Complete Time: 14:18 4 12/23 15:24 Order name: PREGU; Complete Time: 17:18 eb 12/23 13:02 Order name: XRAY Chest (1 view); Complete Time: 14:34 [facility] 12/23 15:14 Order name: Chest For PE Angio CT; Complete Time: 17:15 [facility] 12/23 13:02 Order name: EKG; Complete Time: 13:03 [facility] 12/23 13:02 Order name: Cardiac monitoring; Complete Time: 13:17 [facility] 12/23 13:02 Order name: EKG - Nurse/Tech; Complete Time: 13:07 [facility] 12/23 13:02 Order name: IV Saline Lock; Complete Time: 13:17 [facility] 12/23 13:02 Order name: Labs collected and sent; Complete Time: 13:17 [facility] 12/23 13:02 Order name: O2 Per Protocol; Complete Time: : [facility] 12/23 13:02 Order name: O2 Sat Monitoring; Complete Time: 13:17 sb4 EC:06 Rate is 84 beats/min. Rhythm is regular, Normal Sinus Rhythm. WV interval is normal at sb4 160 msec. QRS interval is normal at 76 msec. QT interval is normal at 384 msec. No Q waves. T waves are Normal. No ST changes noted. Clinical impression: Normal ECG. Interpreted by me. Reviewed by me. Administered Medications: 13:17 Drug: Aspirin PO Chewable Tablet 324 mg PO once; 81 mg tablets x 4 Route: PO; iw 18:17 Follow up: Response: No adverse reaction jl7 15:06 Drug: Famotidine IVP 20 mg IVP once; dilute with 10 mL 0.9% NaCl; give over 2 minutes jl7 Route: IVP; Site: right antecubital; 18:13 Follow up: Response: No adverse reaction jl7 15:06 Drug: HYDROcodone-acetaminophen PO 5 mg-325 mg 1 tabs PO once Route: PO; jl7 18:13 Follow up: Response: No adverse reaction; Pain is decreased jl7 18:13 Drug: AZITHromycin PO 500 mg PO once Route: PO; jl7 18:14 Follow up: Response: Medication administered at discharge. jl7 18:13 Drug: Rocephin IV 1 grams IV at calculated rate once; Given slow IV push per pharmacy jl7 instructions Route: IV; Rate: calculated rate; Site: right antecubital; 18:13 Follow up: Response: No adverse reaction; IV Status: Completed infusion jl7 Disposition: 18:31 Co-signature as Attending Physician, Mil Ni MD I reviewed the patient's care rn provided by the Advanced Practice Provider and agree with the diagnosis and treatment plan. Disposition Summary: 12/23/24 17:37 Discharge Ordered Notes: Location: Home sb4 Problem: an ongoing problem sb4 Symptoms: have improved sb4 Condition: Stable sb4 Diagnosis - Lobar pneumonia, unspecified organism sb4 - Chest pain on breathing sb4 Followup: sb4 - With: Chang Mcfarland MD - When: 2 - 3 days - Reason: Recheck today's complaints, Re-evaluation by your physician Discharge Instructions: - Discharge Summary Sheet sb4 - Community-Acquired Pneumonia, Adult sb4 Forms: - Antibiotic Education sb4 - Patient Portal Instructions sb4 - Leadership Thank You Letter sb4 Prescriptions: - Zithromax 250 mg Oral tablet - take 1 tablet ORAL route daily; 4 tablet; Refills: 0, Product Selection sb4 Permitted - cefdinir 300 mg Oral capsule - take 1 capsule ORAL route every 12 hours for 7 days; 14 capsule; Refills: 0, sb4 Product Selection Permitted Signatures: Dispatcher [employer] Gardenia Mancera RN RN iw Nieto, Roman, MD MD rn Leal, Jahala, RN RN jl7 Brown, Sophia, PA-C PAMerlyn sb4 Corrections: (The following items were deleted from the chart) 14:16 . sb4 sb4
[2024-12-23] MEDS ORDERED: CEFTRIAXONE 1000 MG/VIAL ONE (17:44)
[2024-12-23] MEDS ORDERED: NA CHLORIDE 0.9% 100 ML ONE (17:44)
[2024-12-23] MEDS ORDERED: AZITHROMYCIN 250 MG TAB ONE (17:44)
[2024-12-23 22:23] VITALS: TEMP 97
[2024-12-23 22:37] VITALS: O2SAT 100
[2024-12-23 22:39] VITALS: BP 116/68
== END 2024-12-23 18:16 | disposition home or self-care (01) ==
LOC: ER 12:35
DX: J18.1 Lobar pneumonia, unspecified organism (principal)
CPT/HCPCS: 93005; 85025; 80048; 36415; 83735; 81025; 85610; 85379; 80076; 84484; 83880; 71275; 71045; 96375; 96374; 99285; Q9967; J0696